=== PATIENT | female | born 1945 | race Asian ===

== ENCOUNTER 2025-04-29 08:25 | Outpatient (CLI) | payer MEDICARE ==
--- NOTE | 2025-04-29 13:56 | RADIOLOGY REPORT ---
PROCEDURE: MR MRI LUMBAR SPINE INDICATION: SPONDYLOSIS W/O MYELOPATHY OR RADICULOPATHY, LUMBAR REGION Exam Date: 04/29/2025 09:23 AM COMPARISON: None TECHNIQUE: MRI lumbar spine without intravenous contrast. FINDINGS: The lumbar alignment is intact. Mild marrow edema superior endplate of L1. Moderate superior endplat e compression deformity L2 with associated marrow edema. Mild retropulsion of fracture fragments into the canal. There are degenerative endplate changes including modic endplate changes with anterior an d lateral osteophytes throughout the lumbar spine. The visualized distal spinal cord and conus medull [place] are within normal limits. The conus medullaris appears to terminate within normal limits. The visualized retroperitoneal and paraspinal soft tissues are unremarkable. The following axial levels are detailed below: T12-L1: There is a mild circumferential disc bulge. No significant central canal or neuroforaminal s tenosis. L1-L2: There is a mild circumferential disc bulge. No significant central canal or neuroforaminal s tenosis. L2-L3: There is a moderate circumferential disc bulge complicated by facet arthropathy associated w ith mild to moderate bilateral neuroforaminal stenosis. No significant central canal stenosis. L3-L4: There is a moderate circumferential disc bulge complicated by facet arthropathy associated w ith mild to moderate bilateral neuroforaminal stenosis. No significant central canal stenosis. L4-L5: There is a moderate circumferential disc bulge complicated by facet arthropathy associated w ith mild to moderate bilateral neuroforaminal stenosis. No significant central canal stenosis. L5-S1: There is a moderate circumferential disc bulge complicated by facet arthropathy associated wi th mild to moderate bilateral neuroforaminal stenosis. No significant central canal stenosis. IMPRESSION: 1. Acute/subacute superior endplate compression fracture of the L2 vertebral body. Mild retropulsion of fracture fragments into the canal. Mild marrow edema superior endplate of L1 without loss of vert ebral body height could represent an early compression fracture. Clinical correlation and continued f ollow-up is recommended. 2. Multilevel degenerative disease. No significant central canal stenosis. Neural foraminal stenosi s as above. HS:Y
== END 2025-04-29 23:59 | disposition home or self-care (01) ==
LOC: MRI02 08:25
PROVIDERS: ATTEND Family Medicine Sports Medicine
DX: M48.56XA Collapsed vertebra, not elsewhere classified, lumbar region, initial encounter for fracture (principal); M51.370 Other intervertebral disc degeneration, lumbosacral region with discogenic back pain only; M47.817 Spondylosis without myelopathy or radiculopathy, lumbosacral region; M48.07 Spinal stenosis, lumbosacral region; R60.0 Localized edema; M25.78 Osteophyte, vertebrae; M51.27 Other intervertebral disc displacement, lumbosacral region; M77.9 Enthesopathy, unspecified; M53.3 Sacrococcygeal disorders, not elsewhere classified; M48.8X8 Other specified spondylopathies, sacral and sacrococcygeal region
CPT/HCPCS: 72148